=== PATIENT | female | born 1955 | race Caucasian/White ===

== ENCOUNTER → 2020-05-26 10:03 | Outpatient (CLI) | payer OTHER, SELFPAY ==
--- NOTE | ~2020-05-26 | XR_ITS ---
XR hip RT 2V w AP pelvis DATE: 05/26/2020 10:22 INDICATION: Right hip pain TECHNIQUE: AP pelvis. AP and lateral views of right hip. COMPARISON: None FINDINGS: No pelvic fracture or bone destruction of the pelvis. Normal alignment at the pubic symphy sis and sacroiliac joints. Mild osteitis pubis. No fracture or dislocation, avascular necrosis or bone destruction of the right hip. Hip joint spaces are symmetric and relatively well preserved. IMPRESSION: No pelvic or right hip fracture Reviewed, dictated and finalized at location A. [facility]
== END ==
PROVIDERS: PCP Family Medicine; Visit Provider Family Medicine
DX: M85.38 Osteitis condensans, other site (principal)
CPT/HCPCS: 73502

== ENCOUNTER 2021-01-08 08:48 | Outpatient (CLI) | payer OTHER, SELFPAY ==
--- NOTE | 2021-01-27 06:32 | WPDHOMESLEEP ---
Sleep Study - Home Unattended Date of Study: 01/08/21 Ordering Provider: Gabe James MD Interpreting Provider: Stephanie Begum MD Home Sleep Study Type: Watch PAT Height: 1.69 m Weight: 90.718 kg Body Mass Index: 31.8 Neck Circumference (inches): 16 [place]: 7 Reason for Sleep Study Hypersomnia Sleep History Princess Ahmadi is a 65 year-old woman with Difficulty falling asleep. She wakes up feeling non refreshed. She has tried Tylenol p.m., melatonin and she follows a good sleep schedule. She does not awaken at night feeling short of breath. She rarely awakens at night with heartburn, belching or coughing. She occasionally snores but rarely is a loud enough that others complain about it. She frequently has trouble sleeping with a cold. She rarely wakes up gasping for breath at night. She does not have breathing problems at night observed by others. She does not sweat excessively night. She rarely notices her heart pounding or beating irregularly at night. She occasionally falls asleep during the day, never falls asleep involuntarily or while driving. She does not have loss of muscle tone with strong emotion. She does not have daytime difficulties due to excessive sleepiness. She does not feel paralyzed on waking or falling asleep. She occasionally has vivid dreamlike scenes upon awakening or falling asleep. She does not feel afraid to go to sleep. She does not have nightmares. She occasionally remembers her dreams. She frequently has racing thoughts. She does not feel sad or depressed. She rarely has anxiety. She does not have muscular tension. She occasionally notices parts of her body jerking. She does not kick at night. She occasionally has crawling and aching feelings in her legs. She rarely has any kind of leg pain at night. She does not have morning jaw pain and does not grind her teeth during sleep. She is not bothered by pain during the day and is not awakened by pain at night. She rarely wakes up feeling stiff in the morning. She does not wake up with sore achy muscles or pain in the neck and spine. She has headaches and bowel disturbances. Normal bedtime is 10:30 p.m. taking 30 minutes to fall asleep typically waking 2 or 3 times during the night. This happens about an hour after falling asleep and again around 2-3 in the morning. She is usually able to return to sleep in about 10 or 15 minutes. She wakes in the morning at 8:00 a.m.. She estimates getting 8-9 hours of sleep at night. She she takes naps in the day infrequently only when she is very tired. She may feel refreshed after short nap. She is drowsy in the morning for 1 hour or longer. She feels better in the afternoon or evenings compared to the morning. Habits: Never smoked tobacco. Caffeine 1 cup of coffee per day. No alcohol or recreational drugs. [facility] Past Medical History Medical History (Updated 01/27/21 @ 06:42 by Stephanie Begum MD) Abnormal fasting glucose BMI 33.0-33.9,adult Chronic low back pain without sciatica Chronic right hip pain COVID-19 Elevated liver enzymes Encounter for screening for other viral diseases Family history of colon cancer in father Hypersomnia Hypertension Migraine headache Mixed hyperlipidemia Family History Family History Mother Diabetes mellitus, Onset Age: 84 Family history of dementia Grandparent Diabetes mellitus, Onset Age: 60 Family history of cardiovascular disease Father Family history of cardiovascular disease, Onset Age: 75 Social History Social History Smoking status: Never smoker Alcohol intake: never Medications Home Medications Medication Instructions Recorded Confirmed Type calcium polycarbophil 625 mg tablet 1,250 mg PO DAILY 05/03/19 11/25/20 History cyanocobalamin (vitamin B-12) 1,000 mcg PO DAILY 05/03/19 11/25/20 History
[2021-01-27 06:46] VITALS: BMI 31.8
== END 2021-01-09 10:48 | disposition home or self-care (01) ==
LOC: ANHCSM 08:54
PROVIDERS: PCP Family Medicine; Visit Provider Family Medicine
DX: G47.39 Other sleep apnea (principal)
CPT/HCPCS: 95800

== ENCOUNTER 2021-02-11 07:08 | Outpatient (CLI) | payer OTHER, SELFPAY ==
--- NOTE | 2021-03-11 14:44 | WPDSLEEPSTUD ---
Sleep Study Date of Study: 02/11/21 Ordering Provider: Gabe James MD Interpreting Physician: Stephanie Begum MD Sleep Study Type: CPAP Titration Height: 1.7 m Weight: 88.451 kg Body Mass Index: 30.5 Neck Circumference (inches): 16 [place]: 10 Reason for Sleep Study * Home sleep test using WatchPat 01/08/2021 showing severe mixed sleep apnea, AHI 33.7, central apnea index 14.2, desaturation 83%; she presents for CPAP titration. Sleep History Princess Ahmadi is a 65 year-old woman with difficulty falling asleep. She wakes up feeling tired. She has tried Tylenol p.m., melatonin and she follows a strict sleep schedule. She does not awaken at night feeling short of breath. She rarely awakens at night with heartburn, belching or coughing. She occasionally snores but rarely is it loud enough that others complain about it. She frequently has trouble sleeping with a cold. She rarely wakes up gasping for breath at night. She does not have breathing problems at night observed by others. She does not sweat excessively night. She rarely notices her heart pounding or beating irregularly at night. She occasionally falls asleep during the day, never falls asleep involuntarily or while driving. She does not have loss of muscle tone with strong emotion. She does not have daytime difficulties due to excessive sleepiness. She does not feel paralyzed on waking or falling asleep. She occasionally has vivid dreamlike scenes upon awakening or falling asleep. She does not feel afraid to go to sleep. She does not have nightmares. She occasionally remembers her dreams. She frequently has racing thoughts. She does not feel sad or depressed. She rarely has anxiety. She does not have muscular tension. She occasionally notices parts of her body jerking. She does not kick at night. She occasionally has crawling and aching feelings in her legs. She rarely has any kind of leg pain at night. She does not have morning jaw pain and does not grind her teeth during sleep. She is not bothered by pain during the day and is not awakened by pain at night. She rarely wakes up feeling stiff in the morning. She does not wake up with sore achy muscles or pain in the neck and spine. She has headaches and bowel disturbances. Normal bedtime is 10:30 p.m. taking 30 minutes to fall asleep typically waking 2 or 3 times during the night. This happens about an hour after falling asleep and again around 2-3 in the morning. She is usually able to return to sleep in about 10 or 15 minutes. She wakes in the morning at 8:00 a.m.. She estimates getting 8-9 hours of sleep at night. She she takes naps in the day infrequently only when she is very tired. She may feel refreshed after short nap. She is drowsy in the morning for 1 hour or longer. She feels better in the afternoon or evenings compared to the morning. Habits: Never smoked tobacco. Caffeine 1 cup of coffee per day. No alcohol or recreational drugs. [facility] Past Medical History Medical History (Updated 03/11/21 @ 14:53 by Stephanie Begum MD) Abnormal fasting glucose BMI 33.0-33.9,adult Chronic low back pain without sciatica Chronic right hip pain COVID-19 Elevated liver enzymes Encounter for screening for other viral diseases Family history of colon cancer in father Hypersomnia Hypertension Migraine headache Mixed hyperlipidemia Obstructive sleep apnea (~12/2020) home sleep study 01/08/2021 with severe sleep apnea with AHI 33.7 with 14% central sleep apnea with desaturation to 83% Sleep apnea, central (~12/2020) Family History Family History Mother Diabetes mellitus, Onset Age: 84 Family history of dementia Grandparent Diabetes mellitus, Onset Age: 60 Family history of cardiovascular disease Father Family history of cardiovascular disease, Onset Age: 75 Social History Social History (Reviewed 01/27/21 @ 06:37 by Stephanie
[2021-03-11 14:45] VITALS: BMI 30.5
== END 2021-02-12 07:32 | disposition home or self-care (01) ==
LOC: ANHCSM 07:09
PROVIDERS: PCP Family Medicine; Visit Provider Family Medicine
DX: G47.33 Obstructive sleep apnea (adult) (pediatric) (principal); G47.31 Primary central sleep apnea; G47.39 Other sleep apnea; G25.81 Restless legs syndrome; Z68.30 Body mass index [BMI] 30.0-30.9, adult
CPT/HCPCS: 95811